=== PATIENT | male | born 1955 | race Caucasian/White ===

== ENCOUNTER 2022-07-01 11:23 | Outpatient (CLI) | payer MEDICARE, SELFPAY ==
[2022-07-01 21:24] LABS: Albumin* 4.4 g/dL (3.3-5.0); Chloride* 104 mmol/L (96-114); Sodium* 139 mmol/L (135-149)
[2022-07-01 21:25] LABS: Potassium* 4.4 mmol/L (3.6-5.1)
[2022-07-01 21:27] LABS: Alanine Aminotransferase* 44 U/L (4-50); Alkaline Phosphatase* 56 U/L (40-150); Aspartate Amino Transferase* 39 U/L (12-35); Bilirubin Total* 0.9 mg/dL (0.1-1.5); Blood Urea Nitrogen* 10 mg/dL (7-30); Carbon Dioxide* 27 mmol/L (20-32); Cholesterol* 163 mg/dL (90-199); Creatinine* 0.7 mg/dL (0.5-1.5); Estimated Glomerular Filt Rate 100 ml/min; Glucose* 94 mg/dL (60-115); Total Protein* 7.4 g/dL (6.0-8.3)
[2022-07-01 21:28] LABS: Calcium* 9.1 mg/dL (8.4-10.6); HDL Cholesterol* 52 mg/dL (>=40); LDL Cholesterol Calculated 80 mg/dL (<100); Triglycerides* 155 mg/dL (40-149)
[2022-07-01 21:59] LABS: PSA Screen* 2.75 ng/mL (0.10-4.00)
[2022-07-01 22:18] LABS: Vitamin B12* 328 pg/mL (243-894)
[2022-07-01 22:35] LABS: Free T4 Free Thyroxine* 1.05 ng/dL (0.70-1.85)
== END 2022-07-01 11:24 | disposition home or self-care (01) ==
PROVIDERS: PCP Physician Assistant Medical; Visit Provider Physician Assistant Medical
DX: Z00.00 Encounter for general adult medical examination without abnormal findings (principal); E78.5 Hyperlipidemia, unspecified; R73.09 Other abnormal glucose; R53.83 Other fatigue; G25.0 Essential tremor; F32.A Depression, unspecified; Z12.5 Encounter for screening for malignant neoplasm of prostate
CPT/HCPCS: 80053; 80061; 82607; 84153; 84439; 84443

== ENCOUNTER 2022-07-31 09:08 | Outpatient (CLI) | payer MEDICARE, SELFPAY | END 2022-07-31 09:09 | disposition home or self-care (01) | LOC: OP CLINIC 09:10 | PROVIDERS: PCP Physician Assistant Medical; Visit Provider Internal Medicine | DX: Z12.11 Encounter for screening for malignant neoplasm of colon (principal); K63.5 Polyp of colon; K57.30 Diverticulosis of large intestine without perforation or abscess without bleeding; Z80.0 Family history of malignant neoplasm of digestive organs | CPT/HCPCS: 45380; 45385; 88305; J2250; J3010 ==

== ENCOUNTER 2023-02-02 08:27 | Outpatient (CLI) | payer MEDICARE, SELFPAY | END 2023-02-02 08:28 | disposition home or self-care (01) | LOC: NFLDREF 02-04 12:44 | PROVIDERS: PCP Physician Assistant Medical; Referring Provider Physician Assistant Medical; Visit Provider Physician Assistant Medical | DX: R79.89 Other specified abnormal findings of blood chemistry (principal) | CPT/HCPCS: 84439; 84443 ==

== ENCOUNTER 2023-06-02 03:07 | Emergency (ER) | payer MEDICARE, SELFPAY ==
[2023-06-02 03:11] VITALS: BP 133/94; PULSE 72; RESP 20; TEMP 36.4; O2SAT 96; BMI 35.9
[2023-06-02 03:26] VITALS: O2SAT 98
--- NOTE | 2023-06-02 03:26 | CRLHL7_ITS ---
For Patients: As a result of the Century Cures Act, medical imaging exams and procedure reports are released immediately into your electronic medical record. You may view this report before your referring provider. If you have questions, please contact your health care provider. INDICATION: Dyspnea, cough. TECHNIQUE: Chest 2 views. COMPARISON: 03/31/2019. FINDINGS: Cardiovascular and mediastinum: Heart size and vasculature are normal in caliber and appearance. Lungs and pleural spaces: Lungs are clear. No sign of infiltrate or mass. No sign of pleural effusion. No pneumothorax. Bones and soft tissues: No significant findings. IMPRESSION: No acute pulmonary process. Dictated by Walter Sexton MD @ 06/02/2023 3:46:40 AM (Electronically Signed)
--- NOTE | 2023-06-02 03:29 | ED_ITS ---
HPI - General Adult General Chief complaint: Shortness of Breath/Dyspnea Stated complaint: Can't breathe /Chest pain. Time Seen by Provider: 06/02/23 03:12 Source: patient Mode of arrival: ambulatory History of Present Illness HPI narrative: 67-year-old male reports a 7 day history of initial sore throat then progression the chest congestion. Was initially improving for a couple of days and now worsening over the last 24 hours. Cough is nonproductive. Feels like he is wheezing. No prior history of COPD, lifetime nonsmoker. No known illness exposures. Has been using home COVID tests which have been negative. Was evaluated through virtual visit as he was unable to get in to his primary provider a few days ago and was diagnosed with an upper respiratory infection with symptomatic care recommended. Since that time, he feels like his symptoms are worsening. He tried taking some Mucinex and Sudafed this evening with no significant improvement in symptoms. Feels like it is difficult to get air in and has chest congestion. He has no prior cardiac history. There is no associated lightheadedness, palpitations, syncope or other similar cardiac problems. Denies prior history of pneumonias, no pertinent travel. Appetite has been normal, no vomiting. Past medical history notable for anxiety, tremor, hyperlipidemia. Medications reviewed and accurate as listed in EMR per his report. Socially is a nonsmoker with no pertinent travel. ROS is notable for the respiratory, generalized and HEENT symptoms as described above, otherwise denies times 12 systems. Related Data Home Medications Medication Instructions Recorded Confirmed meclizine 25 mg tablet 25 mg PO PRN 07/01/22 07/29/22 citalopram 20 mg tablet 30 mg PO DAILY 06/02/23 06/02/23 Previous Rx's Medication Instructions Recorded propranolol 60 mg capsule,24 60 mg PO QDAY #90 caps 07/29/22 hr,extended release simvastatin 20 mg tablet 20 mg PO .Bedtime #90 tabs 11/19/22 primidone 50 mg tablet 100 mg (2 x 50 mg) PO BID #360 tabs 11/25/22 citalopram 40 mg tablet 40 mg PO QDAY #90 tabs 01/11/23 peg 3350-electrolytes 236 240 ml PO Q10M #4,000 mL 05/26/23 gram-22.74 gram-6.74 gram-5.86 gram solution (Golytely) albuterol sulfate 90 mcg/actuation 2 inh inhalation Q4-6H PRN #1 ea 06/02/23 breath activated powder inhaler azithromycin 250 mg tablet See Rx Instructions PO .COMPLEX #6 06/02/23 tabs inhalational spacing device #1 ea 06/02/23 (Aerochamber MV spacer) prednisone 20 mg tablet 20 mg PO DAILY #5 tabs 06/02/23 Allergies Allergy/AdvReac Type Severity Reaction Status Date / Time codeine AdvReac Severe headache, Verified 06/02/23 03:11 vomitting PFSH PFSH Medical History Colon polyps ?K63.5 - Polyp of colon (ICD-10) Surgical History History of partial knee replacement ?Z96.659 - Presence of unspecified artificial knee joint (ICD-10) History of appendectomy ?Z90.49 - Acquired absence of other specified parts of digestive tract (ICD- 10) History of right inguinal hernia repair (06/13/09) ?Z98.890 - Other specified postprocedural states (ICD-10) ?Z87.19 - Personal history of other diseases of the digestive system (ICD-10) History of cholecystectomy (06/13/09) ?Z90.49 - Acquired absence of other specified parts of digestive tract (ICD- 10) Family History Father Heart disease Mother Colon cancer Social History Narrative: The patient is . He has 2 adult children. He has a 3 daughter that lives out of state and a son that suffers from alcoholism and lives in his basement. 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 He does not smoke. Reports occasional alcohol use. Smoking Status: Never smoker Non-prescribed substance use: denies use Little interest or pleasure in doing things: more than half the days Feeling down, depressed, or hopeless: nearly every day Exam Const: Vital Signs, click to edit/add: Vital Signs - 24 hr 06/02/23 03:11 Temperature 97.6 F Pulse Rate [Pulse Oximeter] 72 Respiratory Rate 20 Blood Pressure [Ri ght Upper Arm] 133/94 H Pulse Oximetry 96 Oxygen Delivery Me thod Room Air Documenting provider has reviewed patient's vital signs: yes Other: Mildly anxious with no visible respiratory distress though he does report that he feels respiratory distress. Well nourished, well hydrated, good historian. HENMT: Common normals: normocephalic and TM's normal bilaterally Head and scalp: normocephalic Tympanic membrane: TM's normal bilaterally Mouth: oral and palatal mucosa normal Throat: posterior oropharynx normal Eye: Common normals: conjunctivae normal General eye: normal appearance of both eyes Conjunctiva: conjunctiva(e) normal Neck & C-Spine: Common normals: full ROM and no lymphadenopathy Resp: Common normals: normal respiratory effort and no use of accessory muscles Other: Decreased air movement throughout with mild expiratory wheeze. No crackles. Cardio: Common normals: regular rate, regular rhythm, S1 normal heart sound, S2 normal heart sound and no murmurs Rate: regular rate Rhythm: regular rhythm Heart sounds: S1 normal and S2 normal Extremity: Common normals: normal to inspection and no pedal edema Neuro: Speech: speech normal Motor exam: no movement abnormalities noted Psych: Activity/motor behavior: appropriate eye contact Mood and affect: anxious Insight: fair Judgement: fair Skin: Common normals: no rashes or lesions noted General skin exam: no rashes or lesions noted Course Course ED Course: Reassuring initial vital signs. Is on a beta-cody which could potentially mass tachycardia but there is no tachypnea or other signs of respiratory distress. Does have risk factors for coronary artery disease based on age and hyperlipidemia but symptoms are more likely respiratory in nature. Will obtain an EKG, troponin, chest x-ray to look for any signs of pneumonia. Basic labs to assess severity and COVID/influenza/RSV swab. I suspect that he has bronchitis and possibly some mild underlying COPD, does report a history of sleep apnea in his records. Will treat with DuoNeb x1, begin 20 mg of prednisone and 500 mg of azithromycin while we await findings. Reevaluation(s) Time of Reevaluation #1: 04:54 Reevaluation #1: Patient feeling moderately better after inhaler and medications. Normal chest x-ray, relatively normal labs and positive RSV swab discussed. Discussed typical course of RSV. His he is having some symptoms and signs consistent with reactive airway disease, I recommend treatment with prednisone, azithromycin and of uteri all inhaler. These were discussed and sent to his pharmacy. Alarm symptoms reviewed that would warrant 80 presentation and or further follow-up. He verbalizes understanding and agreement. Has not demonstrated any hypoxia or significant respiratory distress on monitoring here in the ED. Vital Signs Vital signs: Initial Vital Signs Temperature 97.6 F 06/02/23 03:11 Temperature Source Temporal Artery Scan 06/02/23 03:11 Pulse Rate 72 06/02/23 03:11 Pulse Strength 3+ Normal 06/02/23 03:11 Respiratory Rate 20 06/02/23 03:11 Blood Pressure 133/94 H 06/02/23 03:11 Blood Pressure Mean 107 H 06/02/23 03:11 Pulse Oximetry 96 06/02/23 03:11 Oxygen Delivery Method Room Air 06/02/23 03:11 Vital Signs Temperature 97.6 F 06/02/23 03:11 Pulse Rate 72 06/02/23 03:11 Respiratory Rate 20 06/02/23 03:11 Blood Pressure 133/94 H 06/02/23 03:11 Pulse Oximetry 96 06/02/23 03:11 Oxygen Delivery Method Room Air 06/02/23 03:11 Temperature 97.6 F 06/02/23 03:11 Pulse Rate 72 06/02/23 03:11 Respiratory Rate 20 06/02/23 03:11 Blood Pressure 133/94 H 06/02/23 03:11 Pulse Oximetry 96 06/02/23 03:11 Oxygen Delivery Method Room Air 06/02/23 03:11 Medications Administered Medications: Discontinued Medications Generic Name Dose Route Start Last Admin Trade Name Freq PRN Reason Stop Dose Admin Albuterol/Ipratropium 1 neb 06/02/23 03:26 06/02/23 03:44 Iprat-Albut 0.5-2.5 Mg/3 Ml Neb IH 06/02/23 03:27 1 neb ONCE ONE Administration Azithromycin 500 mg 06/02/23 03:32 06/02/23 03:45 Azithromycin 250 Mg Tablet PO 06/02/23 03:33 500 mg ONCE ONE Administration Prednisone 20 mg 06/02/23 03:32 06/02/23 03:45 Prednisone 10 Mg Tablet PO 06/02/23 03:33 20 mg ONCE ONE Administration Medical Decision Making Lab Data Lab results reviewed: Yes I reviewed the patient's lab results Labs: Lab Results 06/02/23 06/02/23 Range/Units 03:17 03:50 WBC 7.13 (4.50-11.00) K/uL RBC 4.87 (4.30-5.90) m/uL Hgb 15.1 (13.5-17.5) gm/dL Hct 44.7 (37.0-53.0) % MCV 92 (80-100) fL MCH 31 (26-34) pg MCHC 34 (32-36) gm/dL RDW Coeff of Bhavani 11.6 (11.5-15.5) % Plt Count 172 (140-440) K/uL Neut % (Auto) 67.9 (42.0-72.0) % Lymph % (Auto) 18.4 L (20-44) % [place] % (Auto) 9.1 (0.0-11.0) % Eos % (Auto) 3.4 (0.0-7.0) % Baso % (Auto) 0.4 (0.0-3.0) % Neut # (Auto) 4.84 (1.7-7.0) K/uL Lymph # (Auto) 1.30 (0.90-2.90) K/uL [place] # (Auto) 0.60 (0.00-0.90) K/UL Eos # (Auto) 0.24 (0.00-0.50) K/uL Baso # (Auto) 0.03 (0.00-0.30) K/uL Abs Immat Gran (auto) 0.06 (0.00-0.30) K/uL Imm/Tot Granulo (auto) 0.8 % Sodium 136 (135-149) mmol/L Potassium 4.2 (3.6-5.1) mmol/L Chloride 100 (96-114) mmol/L Carbon Dioxide 26 (20-32) mmol/L Anion Gap 10 (7-15) mEq/L BUN 7 (7-30) mg/dL Creatinine 0.8 (0.5-1.5) mg/dL Estimated Creat Clear 71.99 Estimated GFR 96 ml/min Glucose 117 H (60-115) mg/dL Lactate 2.4 H (0.5-1.9) mmol/L Calcium 9.2 (8.4-10.6) mg/dL C-Reactive Protein 0.9 (0.5-1.0) mg/dL NT-Pro-B Natriuret Pep 189 pg/mL SARS-CoV-2 (PCR) Negative SARS-CoV-2 (Negative) Influenza Type A (PCR) Negative PCR FLU A (Negative) Influenza Type B (PCR) Negative PCR FLU B (Negative) RSV (PCR) POSITIVE PCR RSV A (Negative) POC Troponin I 0.00 L (0.01-0.04) ng/ml Imaging Data Chest x-ray: Attestation: I have reviewed the pertinent imaging results. My impression: Normal chest x-ray Radiologist's impression: IMPRESSION: No acute pulmonary process. Dictated by Walter Sexton MD @ 06/02/2023 3:46:40 AM ECG Data Attestation: I personally reviewed and interpreted this ECG as follows: Prior ECG tracings: not available for review Interpretation: Normal sinus rhythm, rate 70. Normal intervals and axis. No significant ST or T-wave abnormalities. Normal EKG Discharge Plan Discharge Clinical Impression: Mild reactive airways disease, Respiratory syncytial virus (RSV) Patient Disposition: Home, Self-Care Condition: Improved Instructions: RSV (Respiratory Syncytial Virus) (ED) Additional Instructions: As we discussed, you swabs are positive for RSV. This is a common respiratory illness this time of year. Unfortunately it does last a few weeks. This is different than most typical viruses. There is no specific treatment for this. But because you are having some wheezing associated with it now, I would recommend a short course of azithromycin and prednisone. You have already been given today's dose. I will send an additional 5 days supply to your pharmacy. Your next dose of both of these medications will be in the morning of the . I am also sending an inhaler with a spacer. The inhaler you will use for cough fits. I certainly want you to take it 2 puffs before bedtime, as the cough is often worse overnight. You may use the inhaler up to every 2 hours as needed for coughing fits. There is a bit of a learning curve with the inhalers, please use the spacer provided and watched an instructional video readily available from the manufacture or on YouTube of how to use these properly. There are no signs of low oxygen levels, pneumonia or other abnormalities in your blood work. If her symptoms worsen severely, please come back to the [facility] department. Activity Level: Activity as Tolerated Discharge Diet: Regular Prescriptions: New prednisone 20 mg tablet 20 mg PO DAILY Qty: 5 0RF azithromycin 250 mg tablet See Rx Instructions .ROUTE .COMPLEX Qty: 6 0RF Rx Instructions: For 250 mg dose pack: take 500 mg today (day 1), then 250 mg for 4 days (days 2-5) albuterol sulfate 90 mcg/actuation aerosol powdr breath activated 2 inh inhalation Q4-6H PRNQty: 1 1RF (DME) Aerochamber MV Spacer See Rx Instructions .Route Qty: 1 0RF Rx Instructions: As directed No Action meclizine 25 mg tablet 25 mg PO PRN Rx Instructions: for nausea and vertigo citalopram 20 mg tablet 30 mg PO DAILY propranolol 60 mg capsule,extended release 24 hr 60 mg PO QDAY Qty: 90 3RF Rx Instructions: once daily for tremor simvastatin 20 mg tablet 20 mg PO .Bedtime Qty: 90 3RF primidone 50 mg tablet 100 mg PO BID Qty: 360 3RF Rx Instructions: Take 2 tablets twice daily for tremor citalopram 40 mg tablet 40 mg PO QDAY Qty: 90 0RF peg 3350-electrolytes [Golytely] 236-22.74-6.74 -5.86 gram recon soln 240 ml PO Q10M Qty: 4000 0RF Rx Instructions: until fecal effluent is clear Follow Up/Referrals: Naomi Chowdhury PA-C [Primary Care Provider] - Stand Alone Forms: [employer] Info Instructions
[2023-06-02] MEDS: IPRAT-ALBUT 0.5-2.5 MG/3 ML NEB 1 NEB IH (03:44)
[2023-06-02] MEDS: predniSONE 10 MG TABLET 20 MG PO (03:45)
[2023-06-02] MEDS: AZITHROMYCIN 250 MG TABLET 500 MG PO (03:45)
[2023-06-02 03:59] LABS: PCR FLU A Negative PCR FLU A (Negative); PCR FLU B Negative PCR FLU B (Negative); PCR RSV POSITIVE PCR RSV (Negative)
[2023-06-02 04:04] LABS: Lactate* 2.4 mmol/L (0.5-1.9)
[2023-06-02 04:05] LABS: Basophils Absolute Auto 0.03 K/uL (0.00-0.30); Basophils Percent Auto 0.4 % (0.0-3.0); Eosinophils Absolute Auto 0.24 K/uL (0.00-0.50); Eosinophils Percent Auto 3.4 % (0.0-7.0); Hematocrit 44.7 % (37.0-53.0); Hemoglobin* 15.1 gm/dL (13.5-17.5); Immature Granulocytes Abs Auto 0.06 K/uL (0.00-0.30); Immature Granulocytes Pct Auto 0.8 %; Lymphocytes Percent Auto 18.4 % (20-44); Mean Corpuscular HGB Conc 34 gm/dL (32-36); Mean Corpuscular Hemoglobin 31 pg (26-34); Mean Corpuscular Volume 92 fL (80-100); Monocytes Percent Auto 9.1 % (0.0-11.0); Neutrophils Absolute Auto 4.84 K/uL (1.7-7.0); Neutrophils Percent Auto 67.9 % (42.0-72.0); Platelet Count* 172 K/uL (140-440); RDW Coefficient of Variation % 11.6 % (11.5-15.5); Red Blood Count 4.87 m/uL (4.30-5.90); White Blood Count* 7.13 K/uL (4.50-11.00)
[2023-06-02 04:21] LABS: Slide Review Reflex No
[2023-06-02 04:25] LABS: SARS PCR* Negative SARS-CoV-2 (Negative)
[2023-06-02 04:29] LABS: Chloride* 100 mmol/L (96-114); Potassium* 4.2 mmol/L (3.6-5.1); Sodium* 136 mmol/L (135-149)
[2023-06-02 04:31] LABS: Creatinine* 0.8 mg/dL (0.5-1.5); Est. Creatinine Clearance* 71.99; Estimated Glomerular Filt Rate 96 ml/min
[2023-06-02 04:32] LABS: Anion Gap 10 mEq/L (7-15); Carbon Dioxide* 26 mmol/L (20-32)
[2023-06-02 04:33] LABS: Blood Urea Nitrogen* 7 mg/dL (7-30); Calcium* 9.2 mg/dL (8.4-10.6); Glucose* 117 mg/dL (60-115)
[2023-06-02 04:35] LABS: C Reactive Protein* 0.9 mg/dL (0.5-1.0)
[2023-06-02 04:48] LABS: NT Pro B Type NatriureticPept* 189 pg/mL
[2023-06-02 05:05] VITALS: BP 128/86
== END 2023-06-02 05:06 | disposition home or self-care (01) ==
PROVIDERS: Emergency Provider Family Medicine; PCP Physician Assistant Medical
DX: J45.909 Unspecified asthma, uncomplicated (principal); B97.4 Respiratory syncytial virus as the cause of diseases classified elsewhere; R06.89 Other abnormalities of breathing
CPT/HCPCS: 36415; 71046; 80048; 83605; 83880; 84484; 85025; 86140; 87631; 93005; 94640; 94761; 99284; A9270; J7512

== ENCOUNTER 2023-09-22 09:14 | Outpatient (CLI) | payer MEDICARE, SELFPAY | END 2023-09-22 09:15 | disposition home or self-care (01) | PROVIDERS: PCP Physician Assistant Medical; Visit Provider Internal Medicine | DX: R53.83 Other fatigue (principal); Z13.228 Encounter for screening for other metabolic disorders; Z13.29 Encounter for screening for other suspected endocrine disorder | CPT/HCPCS: 80053; 84443 ==

== ENCOUNTER 2023-09-28 14:33 | Outpatient (CLI) | payer MEDICARE, BC, SELFPAY ==
--- NOTE | 2023-09-28 15:33 | P.STN_ITS ---
Stress Test Note Date Date Seen: 09/28/23 Date of test: 09/28/23 Providers Primary care provider: Naomi Chowdhury Stress test physician: Lissette Gonzales Stress Test Note Stress test ordered: Stress Echo Indication for test: Fatigue Stress test medicine: None Results discussion: Resting EKG: Sinus rhythm, 75 beats per minute. Artifact noted, low voltage QRS. Resting blood pressure: 129/87 Stress test: Patient is consented on stress test ordered. Patient is exercised on the treadmill following standard Mani protocol. There is notably significant artifact during stress testing, adjustments were attempted to be made to the patches and monitor to no avail. Patient was able to exercised to 6 minutes 35 seconds, requesting to stop mostly because his knees were significantly symptomatic. This is equivalent to 7.9 Mets. He had a maximum heart rate of 152 beats per minute which was 118% of a calculated target heart rate of 128. Patient is rate pressure product was 22,610 with the maximal blood pressure near the end of exercise of 190/94. No significant ischemic changes noted, no rhythm a. Patient recovered nicely. Await echo images to couple this for a full formal diagnostic. Impression: Subjectively negative, objectively negative EKG portion of this stress test. Follow up suggested: Await echo images to couple this for a full formal diagnostic. Patient disch arged from his stress test in stable condition.
[2023-09-28 16:03] VITALS: BP 121/65; PULSE 77
== END 2023-09-28 14:34 | disposition home or self-care (01) ==
LOC: STRESS 14:34
PROVIDERS: PCP Physician Assistant Medical; Visit Provider Family Medicine
DX: R53.83 Other fatigue (principal)
CPT/HCPCS: 93016; 93325; 93351

== ENCOUNTER 2023-10-01 12:33 | Outpatient (CLI) | payer MEDICARE, BC, SELFPAY ==
--- NOTE | 2023-10-01 13:12 | P.ANES_ITS ---
Anesthesia Charges Start Date/Time Anesthesia Start Date: 10/01/23 Anesthesia Start Time: 13:17 Stop Date/Time Anesthesia Stop Date: 10/01/23 Anesthesia Stop Time: 13:40 Summary Extremes of Age - Over 70 or under 1: [employer] DIRECTOR
--- NOTE | 2023-10-01 13:31 | W.ANESCHARGE ---
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
== END 2023-10-01 12:34 | disposition home or self-care (01) ==
LOC: OP CLINIC 12:37
PROVIDERS: PCP Physician Assistant Medical; Visit Provider Internal Medicine
DX: K63.5 Polyp of colon (principal); K57.30 Diverticulosis of large intestine without perforation or abscess without bleeding; Z86.010 Personal history of colon polyps; Z80.0 Family history of malignant neoplasm of digestive organs
CPT/HCPCS: 00811; 45380; 88305; 99100; J2704

== ENCOUNTER 2024-08-21 13:41 | Emergency (ER) | payer MEDICARE, BC, SELFPAY ==
--- OUTSIDE RECORDS SUMMARY | 2024-08-21 13:44 | XMS_ITS | Clinical Summary ---
Author Organization [facility] Address [address] [place] [address] Care Team Providers Care Sexual Assault Nurse Name Role Phone Naomi Chowdhury PA-C Primary Care Provider Allergies Active Allergy Reactions Criticality Noted Date Comments Codeine Nausea and Vomiting 03/15/2017 headache Medications fluticasone (FLONASE) 50 MCG/ACT nasal spray [place] 1 spray into both nostrils daily as needed for rhinitis or allergies Active simvastatin (ZOCOR) 20 MG tablet Take 20 mg by mouth At Bedtime Active primidone (MYSOLINE) 50 MG tablet Take 100 mg by mouth 2 times daily 2 Active omeprazole (PRILOSEC) [address] capsule Take 20 mg by mouth daily 2 Active propranolol ER (INDERAL LA) 60 MG 24 hr capsule Take 60 mg by mouth daily Active aspirin (ASA) 325 MG EC tabletIndication s:Status post revision of total knee replacement, unspecified laterality Take 1 tablet (325 mg) by mouth daily 30 tablet 2 Active senna-docusate (SENOKOT-S/PERIC OLACE) 8.6-50 MG tabletIndication s:Status post revision of total knee replacement, unspecified laterality Take 1-2 tablets by mouth 2 times daily Take while on oral narcotics to prevent or treat constipation. 30 tablet 2 Active acetaminophen (TYLENOL) 325 MG tabletIndication s:Status post revision of total knee replacement, unspecified laterality Take 2 tablets (650 mg) by mouth every 4 hours as needed for other (mild pain) 100 tablet 2 Active ibuprofen (ADVIL/MOTRIN) 600 MG tabletIndication s:Status post revision of total knee replacement, unspecified laterality Take 1 tablet (600 mg) by mouth every 6 hours as needed (mild) 30 tablet 2 Active oxyCODONE (ROXICODONE) 5 MG tabletIndication s:Status post revision of total knee replacement, unspecified laterality Take 1 tablet (5 mg) by mouth every 6 hours as needed for moderate to severe pain (may take every 4 hours if severe) 1 tab po q 4-6 hrs prn pain 3-6 on pain scale 2 tabs po q 4-6hrs prn pain 7-10 on pain scale 50 tablet 2 Active Active Problems Problem Noted Date Diagnosed Date History of revision of total knee arthroplasty 0 07/21/2021 Status post revision of tota l knee replacement, unspecified laterality 07/21/2021 Pain due to knee joint prosthesis 07/21/2021 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 Father Heart Disease Father Heart attack Cancer Mother colon cancer Prostate Cancer No family hx of Relation Status Comments Brother 1 Alive Brother 2 Alive Father (Age 60) heart attack Mother (Age 58) colon cancer Sister Alive Social History Tobacco Use Types Packs/Day Years Used Date Smoking Tobacco: Never Smokeless Tobacco: Never Alcohol Use Standard Drinks/Week Comments Yes 1.7 (1 standard drink = 0.6 oz p ure alcohol) less than 1 drink per week PHQ-2 Answer Date Recorded PHQ-2 Score 6 08/16/2024 Adolescent Education Answer Date Record ed Getting School Help Needed Not on file 03/13 Sex and Gender Information Value Date Recorded Sex Assigned at Male 06/29/2021 11:25 AM STEAM PIPE FITTER Legal Sex Male 2:58 AM STEAM PIPE FITTER Gender Identity Male 06/29/2021 11:25 AM STEAM PIPE FITTER Sexual Orientation Choose not to disclose 2021 11:25 AM STEAM PIPE FITTER 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 Not on file Last Filed Vital Signs Vital Sign Reading Time Taken Comments Blood Pressure 131/65 07/22/2021 7:57 AM STEAM PIPE FITTER Pulse 66 07/22/2021 7:57 AM STEAM PIPE FITTER Temperature 36.6 C (97.8 F) 07/22/2021 7:57 AM STEAM PIPE FITTER Respiratory Rate 22 07/22/2021 7:57 AM STEAM PIPE FITTER Oxygen Saturation 94% 07/22/2021 7:14 AM STEAM PIPE FITTER Inhaled Oxygen Concentration - - Weight 119.4 kg (263 lb 4.8 oz) 022 8:43 AM STEAM PIPE FITTER Height 177.8 cm (5' 10) 07/21/2021 8:43 AM STEAM PIPE FITTER Body Mass Index 37.78 07/21/2021 8:43 AM STEAM PIPE FITTER Plan of Treatment Upcoming Encounters Date Type Department Care Team (Late st Contact Info) Description 09/19/2024 10:15 AM CDT Office Visit [facility] [address] [place] [phone] Mark Mandel MD [address] [place] [address] Health Maintenance Due Date Last Done Comments ADVANCE CARE PLANNING 1955 ANNUAL REVIEW OF HM ORDERS 1953 CT COLONOGRAPHY 1953 FIT 1953 FLEX SIG 1953 sDNA (Cologuard) 1955 COLONOSCOPY 1963 COLORECTAL CANCER SCREENING 1963 HEPATITIS C SCREENING 1971 LIPID 05/19/2005 05/19/2004 FALL RISK ASSESSMENT 2018 MEDICARE ANNUAL WELLNESS VISIT 2018 05/14/2004 GLUCOSE 07/22/2024 07/22/2021, 06/08, 03/20/2007, Additional history exists COVID-19 Vaccine ( season) 2024 02/25/2024, 04/09/2023, 10/23/2022, Additional history exists RSV VACCINE (1 - 1-dose 75+ series) 2028 DTAP/TDAP/TD IMMUNIZATION (3 - Td or Tdap) 06/17/2030 06/17/2020, 06/13/2009, 04/30/1998 ZOSTER IMMUNIZATION Completed 06/27/2021, 03/24/2021, 03/21/2015 Pneumococcal Vaccine: 50+ Years Completed 07/01/2022, 06/17/2020 INFLUENZA VACCINE Completed 02/25/2024, , 02/23/2022, Additional history exists PHQ-2 (once per calendar year) Completed 08/16/2024, 08/16/2024 HPV IMMUNIZATION Aged Out No longer e ligible based on patient's age to complete this topic MENINGITIS IMMUNIZATION Aged Out No l onger eligible based on patient's age to complete this topic Medical Devices Implanted Type Area Rn Home Care Device Identifier Shelf Expiration Date Model / Serial / Lot Bone Cement Simplex W/Tobramycin 6197-9-001 - [id number] Implanted:Qt y: 1 on 07/21/2021 by Reynaldo Granger MD at [facility] Cement, Bone Right: Knee [employer] [id number] 12/04/2022 6197-9-001 / / [id number] Right, 16mm, Ps, Fixed Bearing, Persona Vivacit-E Articular Surface Implanted:Qt y: 1 on 07/21/2021 by Reynaldo Granger MD at [facility] Right: Knee [id number] 12/04/2021 [id number] / / [id number] Persona Size 9, Right, Standard, Ps Femur Implanted:Qt y: 1 on 07/21/2021 by Reynaldo Granger MD at [facility] Right: Knee [id number] 07/16/2030 [id number] / / [id number] Persona Natural Tibia , 5 , Stemmed, Right Implanted:Qt y: 1 on 07/21/2021 by Reynaldo Granger MD at [facility] Right: Knee [id number] 12/29/2030 [id number] / / [id number] Explanted Type Area Rn Home Care Device Identifier Shelf Expiration Date Model / Serial / Lot Unicompartmental Knee Arthroplasty Component Explanted:Qty: 1 on 07/21/2021 by Reynaldo Granger MD at [facility] Right: Knee Procedures Procedure Name Priority Date/Time Associated Diagnosis Comments GLUCOSE Routine 07/22/2021 5:54 AM STEAM PIPE FITTER HCL LIPID PANEL Routine 05/19/2004 2:44 PM STEAM PIPE FITTER Screening-Lipoid Disorders from Last 3 Months or Most Recently Relevant to Health Maintenance Results * (ABNORMAL) Glucose (07/22/2021 5:54 AM STEAM PIPE FITTER) Pathologist [facility] Glucose 111(H) 70 - 99 mg/dL 07/22/2021 6:45 AM STEAM PIPE FITTER LABORATORY Blood STRUCTURE OF RIGHT HAND / Unknown Venipuncture / Unknown 07/22/2021 5:54 AM STEAM PIPE FITTER 07/22/2021 6:25 AM STEAM PIPE FITTER us Reynaldo Granger MD LAB - BLOOD ORDERABLES F inal Result LABORATORY [facility] [address] Lab (1st floor, no room number) [place] [address], [facility] [phone] * (ABNORMAL) A.M.A. LIPID PANEL (05/19/2004 2:44 PM STEAM PIPE FITTER) Comments DNR [facility] Triglycerides 361(H) <150 MG/DL [facility] Cholesterol 229(H) <200 MG/DL [facility] Cholesterol Percentile 60 PERCENTILE [facility] HDL Cholesterol 36(L) >39 MG/DL [facility] LDL Cholesterol Calculated 121 <130 MG/DL [facility] Comment: LDL CHOLESTEROL (MG/DL) GOALS AND CUTPOINTS FOR THERAPEUTIC LIFESTYLE CHANGES (TLC) AND DRUG THERAPY IN DIFFERENT RISK CATEGORIES (AFTER EXCLUSION OR, IF APPROPRIATE, TREATMENT OF SECONDARY CAUSES OF LDL ELEVATION). FROM NCEP ATP-III REPORT, OCTOBER 2000. RISK CATEGORY LDL GOAL LDL TO LDL TO CONSIDER INITIATE TLC DRUG THERAPY - CHD OR CHD >129 EQUIVALENTS: (100-129: 10 YR RISK >20% <100 >99 DRUG OPTIONAL) 2+ RISK FACTORS: 10 YR RISK 10-20% <130 >129 >129 - 2+ RISK FACTORS: 10 YR RISK <10% <130 >129 >159 - 0-1 RISK FACTORS: <160 >159 >189 (160-189: DRUG OPTIONAL) Cholesterol/HDL Ratio 6.4(H) <5.0 [facility] 05/19/2004 2:44 PM STEAM PIPE FITTER 05/19/2004 us Bj Smiley MD LABORATORY Final Resu lt [facility] from Last 3 Months or Most Recently Relevant to Health Maintenance [place] [address] [facility] MEDICARE SUPPLEMENT Advance Directives For more information, please contact: [phone] * Full Code (Latest Code Status on File) Date Activated Date Inactivated Comments 07/21/2021 2:23 PM 07/22/2021 12:58 PM All basic a nd advanced life-sustaining interventions are performed as appropriate Question Answer Comments Code status determined by: Unable to dis cuss and no AD/POLST on file; continue PREVIOUSLY ORDERED code status Care Teams Sexual Assault Nurse Relationship Specialty Start Date End Date Naomi Chowdhury PA-C [facility] [address] [place] [address] PCP - General Physician Permit Coordinator 07/15/21
--- OUTSIDE RECORDS SUMMARY | 2024-08-21 13:44 | XMS_ITS | Encounter Summary ---
Author Organization [facility] Address [address] [place] [address] Care Team Providers Care Glue Machine Operator Name Role Phone Lissette Diaz MD Primary Care Provider [phone] Naomi Chowdhury PA-C Primary Care Provider Encounter Details Date Type Department Care Team (Late st Contact Info) Description 06/27/2021 Documentation Only INTERFACED REPORT Unknown, Provider Social History Tobacco Use Types Packs/Day Years Used Date Smoking Tobacco: Never Smokeless Tobacco: Never Alcohol Use Standard Drinks/Week Comments Yes 1.7 (1 standard drink = 0.6 oz p ure alcohol) occ Sex and Gender Information Value Date Recorded Sex Assigned at Male 06/29/2021 11:25 AM ASSISTANT MANAGER/EMBALMER Legal Sex Male 2:58 AM ASSISTANT MANAGER/EMBALMER Gender Identity Male 06/29/2021 11:25 AM ASSISTANT MANAGER/EMBALMER Sexual Orientation Choose not to disclose 2021 11:25 AM ASSISTANT MANAGER/EMBALMER 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 Not on file documented as of this encounter Plan of Treatment Upcoming Encounters Date Type Department Care Team (Late st Contact Info) Description 09/19/2024 10:15 AM CDT Office Visit [facility] [address] [place] [address] Mark Mandel MD [address] [place] [address] documented as of this encounter Visit Diagnoses Not on filedocumented in this encounter Care Teams Glue Machine Operator Relationship Specialty Start Date End Date Lissette Diaz MD [facility] [address], [place] [address] PCP - General 02/22/17 07/14/21 Naomi Chowdhury PA-C [facility] [address] [place] [address] PCP - General Physician Concrete Pipe Machine Operator 07/15/21 documented as of this encounter
--- OUTSIDE RECORDS SUMMARY | 2024-08-21 13:44 | XMS_ITS | Clinical Summary ---
Author Organization [facility] Address [address] [place] [address] Care Team Providers Care Collar Turner Operator Name Role Phone Naomi Chowdhury PA-C Primary Care Provider [phone] Allergies Active Allergy Reactions Criticality Noted Date Comments Codeine Nausea And Vomiting 03/15/2017 headache Medications aspirin chewable 81 mg chewable tablet Take 81 mg by mouth once daily with a meal. Active primidone (MYSOLINE) 50 mg tablet Take 50 mg by mouth 3 times daily. Active simvastatin (ZOCOR) 20 mg tablet Take 20 mg by mouth at bedtime. Active propranolol ER (INDERAL LA) 60 mg Cs24 Sustained-Releas e capsule Take 60 mg by mouth once daily. Active Active Problems Problem Noted Date Diagnosed Date Other chest pain 04/04/2019 ASHD (arteriosclerotic heart disease) 04/04/2019 Social History Tobacco Use Types Packs/Day Years Used Date Smoking Tobacco: Never Smokeless Tobacco: Never Alcohol Use Standard Drinks/Week Comments Yes 0 (1 standard drink = 0.6 oz pur e alcohol) occ - 2 per week Sex and Gender Information Value Date Recorded Sex Assigned at Not on file Legal Sex Male 3:52 PM CDT Gender Identity Not on file Sexual Orientation Not on file Obstetrics History Last Filed Vital Signs Vital Sign Reading Time Taken Comments Blood Pressure 116/60 04/04/2019 2:30 PM CDT Pulse 57 04/04/2019 2:30 PM CDT Temperature - - Respiratory Rate - - Oxygen Saturation 97% 04/04/2019 2:30 PM CDT Inhaled Oxygen Concentration - - Weight 106.1 kg (234 lb) 04/04/2019 2:30 PM CDT Height 177.8 cm (5' 10) 04/04/2019 2:30 PM CDT Body Mass Index 33.58 04/04/2019 2:30 PM CDT Plan of Treatment Health Maintenance Due Date Last Done Comments Tdap 1964 Depression screening for age 12+ 1965 Hepatitis C screening for age 18-79 1971 Tetanus booster 1973 Colonoscopy through age 75 1998 Lipids for age 45-75 1998 Pneumococcal series for age 50+ (1 of 1 - PCV) 004 Zoster (shingles) series for age 50+ (1 of 2) 06/16/19 04 BMI (ht and wt on same day) for age 18+ 04/04/2020 1 COVID-19 vaccine series ( - 2023- season) 4 Influenza Vaccine (#1) 2024 RSV vaccine for adults or pr egnancy (1 - 1-dose 75+ series) 2028 Insurance [facility] MEDICARE PB ONLY Care Teams Collar Turner Operator Relationship Specialty Start Date End Date Naomi Chowdhury PA-C [address] [place] [address] PCP - General Emergency Medicine 04/04/19
--- OUTSIDE RECORDS SUMMARY | 2024-08-21 13:44 | XMS_ITS | Clinical Summary ---
Author Organization [facility] Address [address] [place] [address] Care Team Providers Care Boring Machine Feeder Name Role Phone Unassigned, Provider Primary Care Provider Unava ilable Source Comments You are receiving this document as you are listed as the primary care provider,follow-up provider, or the patient has been referred to you for consultation.This is in compliance with the Medicare andMedicaid EHR Incentive Program,which states Providers who transition their patient to another setting of careor provider of care or refers their patient to another provider of care shouldprovide summary care record for each transition of care or referral. [facility] Allergies No known active allergies Medications simvastatin 10 mg TABS Take 10 mg by mouth. Active Active Problems No known active problems Social History Tobacco Use Types Packs/Day Years Used Date Smoking Tobacco: Never Assessed Sex and Gender Information Value Date Recorded Sex Assigned at Not on file Legal Sex Male 5:03 AM CDT Gender Identity Not on file Sexual Orientation Not on file Plan of Treatment Health Maintenance Due Date Last Done Comments Colon Cancer Screening Plan Due 1955 Hep C Screening (Preventive Services) 1955 Adult Preventive Visit 1971 Cholesterol 1988 Zoster/Shingles (2 of 3) 05/16/2015 03/21/2015 Pneumococcal 50+ Yrs (2 of 2 - PCV) 06/17/2021 06/17/2020 COVID-19 Vaccine (3 - season) 2024 09/03/2020, 08/13/2020 Influenza (#1) 2024 03/22/2020, 05/07, 03/02/2017, Additional history exists RSV (1 - 1-dose 75+ series) 2028 DTaP/Tdap/Td (3 - Tdap) 06/17/2030 06/17/2020, 06/13 HepA Aged Out 04/30/1998 No longer eligi ble based on patient's age to complete this topic HepB Aged Out No longer eligi ble based on patient's age to complete this topic Hib Aged Out No longer eligi ble based on patient's age to complete this topic IPV (Polio) Aged Out No longer eligi ble based on patient's age to complete this topic MCV4 Aged Out No longer eligi ble based on patient's age to complete this topic Meningococcal B Aged Out No longer el igible based on patient's age to complete this topic Insurance BCBS OUT OF STATE Care Teams Boring Machine Feeder Relationship Specialty Start Date End Date Unassigned, Provider [address] [place] [address] PCP - General 05/15/00
--- OUTSIDE RECORDS SUMMARY | 2024-08-21 13:44 | XMS_ITS | Encounter Summary ---
Author Organization [facility] Address [address] [place] [address] Care Team Providers Care Rubber Grinder Name Role Phone Naomi Chowdhury PA-C Primary Care Provider Reason for Visit * Reason Comments New Patient Encounter Details Date Type Department Care Team (Late st Contact Info) Description 08/16/2024 1:00 PM CDT Virtual Visit [facility] [address] 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 YES Visit mode:VIDEO If the visit is dropped, the patient can be reconnected by: VIDEO VISIT: Text to cell phone: [phone] Will anyone else be joining the visit? NO How would you like to obtain your AVS? MyChart Are changes needed to the allergy or medication list? NO Reason for visit: New Patient documented in this encounter Plan of Treatment Upcoming Encounters Date Type Department Care Team (Late st Contact Info) Description 09/19/2024 10:15 AM CDT Office Visit [facility] [address] [facility] [address] [place] [phone] Mark Mandel MD [address] [facility] [address] [place] [address] documented as of this encounter Visit Diagnoses Not on filedocumented in this encounter Additional Health Concerns Assessment Noted Time PHQ-9 Depression Total Score: 16 025 12:47 PM CDT documented as of this encounter Care Teams Rubber Grinder Relationship Specialty Start Date End Date Naomi Chowdhury PA-C [facility] [address] [place] [address] PCP - General Physician Hammer Adjuster 07/15/21 documented as of this encounter
[2024-08-21 13:56] VITALS: BP 124/77; PULSE 61; RESP 16; TEMP 36.4; O2SAT 94; BMI 38.2
--- NOTE | 2024-08-21 14:06 | CRLHL7_ITS ---
For Patients: As a result of the Century Cures Act, medical imaging exams and procedure reports are released immediately into your electronic medical record. You may view this report before your referring provider. If you have questions, please contact your health care provider. Indication: Right testicular pain and swelling. Technique: Ultrasound of the scrotum and contents. Sonographic sah-scale images were obtained with spectral and color Doppler waveform and spectral waveform analysis of the testicles. Comparison: None. Findings: Bother testicles are normal in size and echotexture. No masses. No suspicious calcifications. Arterial and venous color Doppler blood flow and spectral waveforms are present in both testicles. Epididymis: Enlarged and hyperemic right epididymis. Other: No significant hydrocele. No sign of varicocele. Scrotal wall is normal. Impression: Acute right epididymitis. Testicles and remainder of the exam are unremarkable. Dictated by Thomas Willard MD @ 08/21/2024 3:33:08 PM (Electronically Signed)
--- NOTE | 2024-08-21 15:02 | ED.MALEGU ---
HPI - Male Genitourinary General Time Seen by Provider: 15:02 Date Seen: 08/21/24 Chief complaint: Urogenital Problems, Male Stated complaint: Possible Testicular Tortion Time Seen by Provider: 08/21/24 14:04 Source: patient and RN notes reviewed Mode of arrival: ambulatory Limitations: no limitations History of Present Illness HPI Narrative: Patient is a very pleasant 69-year-old gentleman currently sexually active with history of KEVON hyperlipidemia who comes to the emergency room complaining of right testicular pain. Read notes that over the past week he has had intermittent discomfort and 48 hours ago noticed a lump on the right testicle. Since that time he has started running a fever and has noticed more swelling of the scrotum. He has not had any vomiting or nausea. He has not had this occur in the past. He only has 1 partner. Related Data Home Medications ?Medication ?Instructions ?Recorded ?Confirmed primidone 50 mg tablet 100 mg PO BID 08/21/24 08/21/24 Previous Rx's ?Medication ?Instructions ?Recorded albuterol sulfate 90 mcg/actuation 2 inh inhalation Q4-6H PRN #1 ea 06/02/23 breath activated powder inhaler inhalational spacing device #1 ea 06/02/23 (Aerochamber MV spacer) scopolamine base 1 mg over 3 days 1 patch transdermal Q3D PRN motion 07/12/23 transdermal patch sickness #24 ea meclizine 25 mg tablet 25 mg PO TID PRN motion sickness 07/21/23 #30 tabs simvastatin 20 mg tablet 20 mg PO .Bedtime #90 tabs 10/20/23 propranolol 120 mg capsule,24 120 mg PO QDAY #30 caps 05/17/24 hr,extended release levofloxacin 500 mg tablet 500 mg PO DAILY #9 tabs 08/21/24 Allergies Allergy/AdvReac Type Severity Reaction Status Date / Time codeine AdvReac Severe headache, Verified 08/21/24 13:54 vomitting Review of Systems Status of ROS: Reports: 10 or more systems reviewed and unremarkable except as noted in History and below Const: Reports: fever; Denies: change in weight or fatigue Eyes: Denies: change in vision ENMT: Denies: throat pain or neck pain Cardio: Denies: chest pain, swelling of feet/ankles, lightheadedness or shortness of breath with exertion Resp: Denies: shortness of breath or cough GI: Denies: abdominal pain, vomiting, diarrhea or constipation : Denies: painful urination, urinary frequency or blood in urine Musculo: Denies: neck pain Integ/Breast: Denies: rash Neuro: Denies: headache Endo: Denies: fatigue PFSH PFS Medical History Hip pain ?M25.559 - Pain in unspecified hip (ICD-10) Colon polyps ?K63.5 - Polyp of colon (ICD-10) Surgical History History of partial knee replacement ?Z96.659 - Presence of unspecified artificial knee joint (ICD-10) History of appendectomy ?Z90.49 - Acquired absence of other specified parts of digestive tract (ICD-10) History of right inguinal hernia repair (06/13/09) ?Z98.890 - Other specified postprocedural states (ICD-10) ?Z87.19 - Personal history of other diseases of the digestive system (ICD-10) History of cholecystectomy (06/13/09) ?Z90.49 - Acquired absence of other specified parts of digestive tract (ICD-10) Family History Father Heart disease Mother Colon cancer Social History Narrative: The patient is . He has 2 adult children. He has a 3 daughter that lives out of state and a son that suffers from alcoholism and lives in his basement. 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 He does not smoke. Reports occasional alcohol use. What is your current living situation?: I presently have a place to live Problems where you live: no known problems In the past 12 months, utilities in danger of being shut off: no In past 12 months, lack of transportation kept you from medical appts, meetings, work, or getting things needed for daily living: no In the past 12 mos, have been you worried that your food would run out before you had money to buy more?: never true In the past 12 mos, the food you bought just didn't last and you didn't have money to buy more?: never true Smoking Status: Never smoker Non-prescribed substance use: denies use How often does anyone, including family, friends and others, physically hurt you: never How often does anyone, including family, friends and others, insult or talk down to you: never How often does anyone, including family, friends and others, threaten you with harm: never How often does anyone, including family, friends and others, scream or curse at you: never Exam Narrative: Exam Narrative: Alert and oriented. No acute distress. Mild erythema noted on the scrotum but no evidence of edema. No discomfort with palpation of the left testicle. Increased discomfort globally of the right testicle. No lymphadenopathy. Heart with regular rate and rhythm and lungs are clear bilaterally. Abdomen soft nontender. Moving all extremities. Nontoxic in appearance. Const: Vital Signs, click to edit/add: Vital Signs - 24 hr 08/21/24 13:56 08/21/24 18:02 Temperature 97.5 F L Pulse Rate 58 L Pulse Rate [Pulse Oximeter] 61 Respiratory Rate 16 16 Blood Pressure 105/77 Blood Pressure [Ri ght Upper Arm] 124/77 Pulse Oximetry 94 95 Oxygen Delivery Me thod Room Air Room Air Documenting provider has reviewed patient's vital signs: yes Course Course ED Course: Differential diagnosis includes but is not limited to testicular torsion, orchitis, epididymitis. Given the history most likely represents an infection. As he is sexually active will obtain GC and chlamydia as well as urinalysis. Patient will have stat ultrasound as well. Reevaluation(s) Reevaluation #1: Patient noted to have normal white count, ultrasound that shows acute epididymitis. Patient is ordered oral Levaquin 750 mg and 1 g IV Rocephin. Would like to have blood cultures done 1st before this medication is given. Vital Signs Vital signs: Initial Vital Signs Temperature 97.5 F L 08/21/24 13:56 Temperature Source Temporal Artery Scan 08/21/24 13:56 Pulse Rate 61 08/21/24 13:56 Pulse Rhythm Regular 08/21/24 13:56 Respiratory Rate 16 08/21/24 13:56 Blood Pressure 124/77 08/21/24 13:56 Blood Pressure Mean 92 08/21/24 13:56 Blood Pressure Position Sitting 08/21/24 13:56 Pulse Oximetry 94 08/21/24 13:56 Oxygen Delivery Method Room Air 08/21/24 13:56 Vital Signs Temperature 97.5 F L 08/21/24 13:56 Pulse Rate 61 08/21/24 13:56 Respiratory Rate 16 08/21/24 13:56 Blood Pressure 124/77 08/21/24 13:56 Pulse Oximetry 94 08/21/24 13:56 Oxygen Delivery Method Room Air 08/21/24 13:56 Temperature 97.5 F L 08/21/24 13:56 Pulse Rate 58 L 08/21/24 18:02 Respiratory Rate 16 08/21/24 18:02 Blood Pressure 105/77 08/21/24 18:02 Pulse Oximetry 95 08/21/24 18:02 Oxygen Delivery Method Room Air 08/21/24 18:02 Medications Administered Medications: Discontinued Medications Generic Name Dose Route Start Last Admin Trade Name Freq PRN Reason Stop Dose Admin Ceftriaxone Sodium 1 gm/ 100 mls @ 200 mls/hr 08/21/24 17:50 08/21/24 18:45 Sodium Chloride IVPB 08/21/24 17:51 200 mls/hr ONCE ONE Administration Levofloxacin 750 mg 08/21/24 17:23 08/21/24 18:02 Levofloxacin 750 Mg Tablet PO 08/21/24 17:24 750 mg ONCE ONE Administration MDM - Male Genitourinary MDM Narrative Medical decision making narrative: 1. Acute epididymitis - patient will receive oral Levaquin 750 mg and 1 g IV Rocephin. White count is reassuring at this time and patient while reported we had feeling febrile at home is afebrile here in the emergency room. Because of this and insisting on blood cultures prior to discharge. Remainder of Levaquin 500 mg daily for 9 days was sent to his pharmacy. Next dose is tomorrow. Ibuprofen or Tylenol as needed for discomfort. Patient does not feel he will need anything stronger than that. Suggest the use of form fitting underwear for support. 2. Disposition- Home at this time. Return to the ER for fever, vomiting, worsening symptoms. Push fluids. Have also alerted patient to importance of discontinuing medication if he experiences any joint pain. Medical Records Attestation: I reviewed the patient's medical records. Lab Data Attestation: I reviewed the patient's lab results. Labs: Lab Results 0308/21/24 08/21/24 Range/Units 14:06 17:30 18:10 WBC 7.45 (4.50-11.00) K/uL RBC 4.97 (4.30-5.90) m/uL Hgb 15.4 (13.5-17.5) gm/dL Hct 45.8 (37.0-53.0) % MCV 92 (80-100) fL MCH 31 (26-34) pg MCHC 34 (32-36) gm/dL RDW Coeff of Bhavani 11.7 (11.5-15.5) % Plt Count 190 (140-440) K/uL Neut % (Auto) 54.0 (42.0-72.0) % Lymph % (Auto) 35.0 (20-44) % Roberts % (Auto) 7.4 (0.0-11.0) % Eos % (Auto) 2.7 (0.0-7.0) % Baso % (Auto) 0.4 (0.0-3.0) % Neut # (Auto) 4.02 (1.7-7.0) K/uL Lymph # (Auto) 2.61 (0.90-2.90) K/uL Roberts # (Auto) 0.60 (0.00-0.90) K/UL Eos # (Auto) 0.20 (0.00-0.50) K/uL Baso # (Auto) 0.03 (0.00-0.30) K/uL Abs Immat Gran (auto) 0.04 (0.00-0.30) K/uL Imm/Tot Granulo (auto) 0.5 % Sodium 134 L (135-149) mmol/L Potassium 4.5 (3.6-5.1) mmol/L Chloride 99 (96-114) mmol/L Carbon Dioxide 29 (20-32) mmol/L Anion Gap 6 L (7-15) mEq/L BUN 17 (7-30) mg/dL Creatinine 0.8 (0.5-1.5) mg/dL Estimated Creat Clear 69.96 Estimated GFR 95 ml/min Glucose 99 (60-115) mg/dL Calcium 9.8 (8.4-10.6) mg/dL Total Bilirubin 0.5 (0.1-1.5) mg/dL AST 25 (12-35) U/L ALT 39 (4-50) U/L Alkaline Phosphatase 69 (40-150) U/L Total Protein 7.8 (6.0-8.3) g/dL Albumin 4.8 (3.3-5.0) g/dL Urine Color Yellow (Yellow) Urine Appearance Clear (Clear) Urine pH 6.5 (5.0-8.5) Ur Specific Ada 1.025 (1.000-1.030) Urine Protein Negative (Negative) Urine Glucose (UA) Negative (Negative) Urine Ketones Negative (Negative) Urine Blood 2+ A (Negative) Urine Nitrite Negative (Negative) Urine Bilirubin Negative (Negative) Urine Urobilinogen 0.2 (0.2-1.0) Ur Leukocyte Esterase Negative (Negative) Urine RBC 10-25 A (0-2) Urine WBC 0-2 (0-5) Ur Squamous Epith Cells None (None-Few) Urine Bacteria None (None) Imaging Data Scrotal ultrasound: Attestation: I have reviewed the pertinent imaging results. Radiologist's impression: Bother testicles are normal in size and echotexture. No masses. No suspicious calcifications. Arterial and venous color Doppler blood flow and spectral waveforms are present in both testicles. Epididymis: Enlarged and hyperemic right epididymis. Other: No significant hydrocele. No sign of varicocele. Scrotal wall is normal. Impression: Acute right epididymitis. Testicles and remainder of the exam are unremarkable. Discharge Plan Discharge Clinical Impression: Acute epididymitis Patient Disposition: Home, Self-Care Condition: Improved Additional Instructions: start antibiotic Levaquin tonight and continue for 10 days. Ibuprofen or Tylenol as needed for pain Return to the emergency room for fever, vomiting, worsening symptoms. Prescriptions: New levofloxacin 500 mg tablet 500 mg PO DAILY Qty: 9 0RF No Action propranolol 120 mg capsule,extended release 24 hr 120 mg PO QDAY Qty: 30 3RF albuterol sulfate 90 mcg/actuation aerosol powdr breath activated 2 inh inhalation Q4-6H PRNQty: 1 1RF (DME) Aerochamber MV Spacer See Rx Instructions .Route Qty: 1 0RF Rx Instructions: As directed primidone 50 mg tablet 100 mg PO BID scopolamine base 1 mg over 3 days patch 3 day 1 patch transdermal Q3D PRN (Reason: motion sickness) Qty: 24 0RF Rx Instructions: Change patch every 3 days p.r.n. For motion sickness meclizine 25 mg tablet 25 mg PO TID PRN (Reason: motion sickness) Qty: 30 0RF Rx Instructions: Take 1 tablet up to 3 times daily as needed for vertigo/motion sickness simvastatin 20 mg tablet 20 mg PO .Bedtime Qty: 90 3RF Follow Up/Referrals: Pravin Abrams MD [Primary Care Provider] - Stand Alone Forms: [employer] Info Instructions
[2024-08-21 17:39] LABS: Basophils Absolute Auto 0.03 K/uL (0.00-0.30); Basophils Percent Auto 0.4 % (0.0-3.0); Eosinophils Percent Auto 2.7 % (0.0-7.0); Hematocrit 45.8 % (37.0-53.0); Hemoglobin* 15.4 gm/dL (13.5-17.5); Immature Granulocytes Abs Auto 0.04 K/uL (0.00-0.30); Immature Granulocytes Pct Auto 0.5 %; Lymphocytes Absolute Auto 2.61 K/uL (0.90-2.90); Mean Corpuscular HGB Conc 34 gm/dL (32-36); Mean Corpuscular Hemoglobin 31 pg (26-34); Mean Corpuscular Volume 92 fL (80-100); Monocytes Percent Auto 7.4 % (0.0-11.0); Neutrophils Absolute Auto 4.02 K/uL (1.7-7.0); Platelet Count* 190 K/uL (140-440); RDW Coefficient of Variation % 11.7 % (11.5-15.5); Red Blood Count 4.97 m/uL (4.30-5.90); White Blood Count* 7.45 K/uL (4.50-11.00)
[2024-08-21 17:40] LABS: Slide Review Reflex No
--- OUTSIDE RECORDS SUMMARY | 2024-08-21 17:40 | XMS_ITS | Encounter Summary ---
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 Not on file documented as of this encounter Plan of Treatment Upcoming Encounters Date Type Department Care Team (Late st Contact Info) Description 09/19/2024 10:15 AM CDT Office Visit [facility] [address] [place] [address] Mark Mandel MD [address] [place] [address] documented as of this encounter Visit Diagnoses Not on filedocumented in this encounter Care Teams Actuarial Associate Relationship Specialty Start Date End Date Lissette Diaz MD [facility] [address], [place] [address] PCP - General 02/22/17 07/14/21 Naomi Chowdhury PA-C [facility] [address] [place] [address] PCP - General Physician Fairground Operator 07/15/21 documented as of this encounter
--- OUTSIDE RECORDS SUMMARY | 2024-08-21 17:40 | XMS_ITS | Clinical Summary ---
Author Organization [facility] Address [address] [place] [address] Care Team Providers Care Lube Technician Name Role Phone Naomi Chowdhury PA-C Primary Care Provider Allergies Active Allergy Reactions Criticality Noted Date Comments Codeine Nausea and Vomiting 03/15/2017 headache Medications fluticasone (FLONASE) 50 MCG/ACT nasal spray [place] 1 spray into both nostrils daily as [...] CDT Virtual Visit [facility] [address] [facility] [address] [place] [address] Tamara Carlson LICSW from Last [...] Assigned at Male 06/29/2021 11:25 AM ASSISTANT TRACK COACH Legal Sex Male 2:58 AM ASSISTANT TRACK COACH Gender Identity Male 06/29/2021 11:25 AM ASSISTANT TRACK COACH Sexual Orientation Choose not to disclose 2021 11:25 AM ASSISTANT TRACK COACH 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 Not on file Last Filed Vital Signs Vital Sign Reading Time Taken Comments Blood Pressure 131/65 07/22/2021 7:57 AM ASSISTANT TRACK COACH Pulse 66 07/22/2021 7:57 AM ASSISTANT TRACK COACH Temperature 36.6 C (97.8 F) 07/22/2021 7:57 AM ASSISTANT TRACK COACH Respiratory Rate 22 07/22/2021 7:57 AM ASSISTANT TRACK COACH Oxygen Saturation 94% 07/22/2021 7:14 AM ASSISTANT TRACK COACH Inhaled Oxygen Concentration - - Weight 119.4 kg (263 lb 4.8 oz) 022 8:43 AM ASSISTANT TRACK COACH Height 177.8 cm (5' 10) 07/21/2021 8:43 AM ASSISTANT TRACK COACH Body Mass Index 37.78 07/21/2021 8:43 AM ASSISTANT TRACK COACH Plan of Treatment Upcoming Encounters Date Type Department Care Team (Late st Contact Info) Description 09/19/2024 10:15 AM CDT Office Visit [facility] [address] [place] [phone] Mark Mandel MD [address] [place] [address] Health Maintenance Due Date Last Done Comments [...] this topic Medical Devices Implanted Type Area Peanut Farmer Device Identifier Shelf Expiration Date Model / Serial / Lot Bone Cement Simplex W/Tobramycin 6197-9-001 - [id number] Implanted:Qt y: 1 on 07/21/2021 by Reynaldo Granger MD at [facility] Cement, Bone Right: Knee [employer] [id number] 12/04/2022 6197-9-001 / / [id number] Right, 16mm, Ps, Fixed Bearing, Persona Vivacit-E Articular Surface Implanted:Qt y: 1 on 07/21/2021 by Reynaldo Granger MD at [facility] Right: Knee [id number] 12/04/2021 [id number] / / [id number] Persona Size 9, Right, Standard, Ps Femur Implanted:Qt y: 1 on 07/21/2021 by Reynaldo Granger MD at [facility] Right: Knee [id number] 07/16/2030 [id number] / / [id number] Persona Natural Tibia , 5 , Stemmed, Right Implanted:Qt y: 1 on 07/21/2021 by Reynaldo Granger MD at [facility] Right: Knee [id number] 12/29/2030 [id number] / / [id number] Explanted Type Area Peanut Farmer Device Identifier Shelf Expiration Date Model / Serial / Lot Unicompartmental Knee Arthroplasty Component Explanted:Qty: 1 on 07/21/2021 by Reynaldo Granger MD at [facility] Right: Knee Procedures Procedure Name Priority Date/Time Associated Diagnosis Comments GLUCOSE Routine 07/22/2021 5:54 AM ASSISTANT TRACK COACH HCL LIPID PANEL Routine 05/19/2004 2:44 PM ASSISTANT TRACK COACH Screening-Lipoid Disorders from Last 3 Months or Most Recently Relevant to Health Maintenance Results * (ABNORMAL) Glucose (07/22/2021 5:54 AM ASSISTANT TRACK COACH) Pathologist [facility] Glucose 111(H) 70 - 99 mg/dL 07/22/2021 6:45 AM ASSISTANT TRACK COACH LABORATORY Blood STRUCTURE OF RIGHT HAND / Unknown Venipuncture / Unknown 07/22/2021 5:54 AM ASSISTANT TRACK COACH 07/22/2021 6:25 AM ASSISTANT TRACK COACH us Reynaldo Granger MD LAB - BLOOD ORDERABLES F inal Result LABORATORY [facility] [address] Lab (1st floor, no room number) [place] [address], [facility] [phone] * (ABNORMAL) A.M.A. LIPID PANEL (05/19/2004 2:44 PM ASSISTANT TRACK COACH) Comments DNR [facility] Triglycerides 361(H) <150 MG/DL [facility] Cholesterol 229(H) <200 MG/DL [facility] Cholesterol Percentile 60 PERCENTILE [facility] HDL Cholesterol 36(L) >39 MG/DL [facility] LDL Cholesterol Calculated 121 <130 MG/DL [facility] Comment: LDL CHOLESTEROL (MG/DL) GOALS AND CUTPOINTS [...] (160-189: DRUG OPTIONAL) Cholesterol/HDL Ratio 6.4(H) <5.0 [facility] 05/19/2004 2:44 PM ASSISTANT TRACK COACH 05/19/2004 us Bj Smiley MD LABORATORY Final Resu lt [facility] from Last 3 Months or Most Recently Relevant to Health Maintenance Insurance PATIENT CHOICE [facility] [place] [facility]IC[facility] SUPPLEMENT Advance Directives For more information, please contact: [phone] * Full Code (Latest Code Status on File) Date Activated Date Inactivated Comments 07/21/2021 2:23 PM 07/22/2021 12:58 PM All basic a nd advanced life-sustaining interventions are performed as appropriate Question Answer Comments Code status determined by: Unable to dis cuss and no AD/POLST on file; continue PREVIOUSLY ORDERED code status Care Teams Lube Technician Relationship Specialty Start Date End Date Naomi Chowdhury PA-C [facility] [address] [place] [address] PCP - General Physician Barrow Worker Helper 07/15/21
--- OUTSIDE RECORDS SUMMARY | 2024-08-21 17:40 | XMS_ITS | Clinical Summary ---
Author Organization [employer] [facility] Address [address] [place] [address] Care Team Providers Care Group Sales Coordinator Name Role Phone Naomi Chowdhury PA-C Primary Care Provider [phone] Allergies Active Allergy Reactions Criticality Noted Date [...] (1 - 1-dose 75+ series) 2028 Insurance [facility] MEDICARE [place] ONLY Care Teams Group Sales Coordinator Relationship Specialty Start Date End Date Naomi Chowdhury PA-C [address] [place] [address] PCP - General Emergency Medicine 04/04/19
--- OUTSIDE RECORDS SUMMARY | 2024-08-21 17:40 | XMS_ITS | Encounter Summary ---
Author Organization [facility] Address [address] [place] [address] Care Team Providers Care Grinding Wheel Dresser Name Role Phone Naomi Chowdhury PA-C Primary Care Provider Reason for Visit * Reason Comments New Patient Encounter Details Date Type Department Care Team (Late st Contact Info) Description 08/16/2024 1:00 PM CDT Virtual Visit [facility] [address] [facility] [address] [place] [phone] Tamara Carlson, [facility] [address] [facility] [address] [place] [address] Social History Tobacco Use Types [...] Sex Assigned at Male 06/29/2021 11:25 AM MANAGER TRAINING Legal Sex Male 2:58 AM MANAGER TRAINING Gender Identity Male 06/29/2021 11:25 AM MANAGER TRAINING Sexual Orientation Choose not to disclose 2021 11:25 AM MANAGER TRAINING 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 YES Visit mode:VIDEO If the visit is dropped, the patient can be reconnected by: VIDEO VISIT: Text to cell phone: [phone] Will anyone else be joining the visit? NO How would you like to obtain your AVS? MyChart Are changes needed to the allergy or medication list? NO Reason for visit: New Patient documented in this encounter Plan of Treatment Upcoming Encounters Date Type Department Care Team (Late st Contact Info) Description 09/19/2024 10:15 AM CDT Office Visit [facility] [address] [facility] [address] [place] [phone] Mark Mandel MD [address] [facility] [address] [place] [address] documented as of this encounter Visit Diagnoses Not on filedocumented in this encounter Additional Health Concerns Assessment Noted Time PHQ-9 Depression Total Score: 16 025 12:47 PM CDT documented as of this encounter Care Teams Grinding Wheel Dresser Relationship Specialty Start Date End Date Naomi Chowdhury PA-C [facility] [address] [place] [address] PCP - General Physician Grievance And Appeals Coordinator 07/15/21 documented as of this encounter
--- OUTSIDE RECORDS SUMMARY | 2024-08-21 17:40 | XMS_ITS | Clinical Summary ---
Author Organization [facility] Address [address] [place] [address] Care Team Providers Care Business Relations Manager Name Role Phone Unassigned, Provider Primary Care [...] for each transition of care or referral. [facility] Allergies No known active allergies Medications simvastatin [...] Insurance BCBS OUT OF STATE Care Teams Business Relations Manager Relationship Specialty Start Date End Date Unassigned, Provider [address] [place] [address] PCP - General 05/15/00
[2024-08-21 17:46] LABS: Appearance Urine Clear (Clear); Bilirubin Urine Negative (Negative); Blood Urine 2+ (Negative); Color Urine Yellow (Yellow); Glucose Urine Negative (Negative); Ketones Urine Negative (Negative); Leukocyte Esterase Urine Negative (Negative); Nitrite Urine Negative (Negative); Protein Urine Negative (Negative); Specific Gravity Urine 1.025 (1.000-1.030); Urobilinogen Urine 0.2 (0.2-1.0); pH Urine 6.5 (5.0-8.5)
[2024-08-21 17:59] LABS: WBC Urine 0-2 (0-5)
[2024-08-21 18:02] VITALS: BP 105/77; PULSE 58; RESP 16; O2SAT 95
[2024-08-21] MEDS: levoFLOXacin 750 MG TABLET PO (18:02)
[2024-08-21] MEDS: cefTRIAXone 1 GM in 0.9 % SODIUM CHLORIDE Mini-bag 100 ML IVPB (18:45)
[2024-08-21 18:52] LABS: Albumin* 4.8 g/dL (3.3-5.0); Chloride* 99 mmol/L (96-114)
[2024-08-21 18:53] LABS: Potassium* 4.5 mmol/L (3.6-5.1); Sodium* 134 mmol/L (135-149)
[2024-08-21 18:55] LABS: Anion Gap 6 mEq/L (7-15); Aspartate Amino Transferase* 25 U/L (12-35); Bilirubin Total* 0.5 mg/dL (0.1-1.5); Blood Urea Nitrogen* 17 mg/dL (7-30); Carbon Dioxide* 29 mmol/L (20-32); Creatinine* 0.8 mg/dL (0.5-1.5); Est. Creatinine Clearance* 69.96; Estimated Glomerular Filt Rate 95 ml/min; Total Protein* 7.8 g/dL (6.0-8.3)
[2024-08-21 18:56] LABS: Alanine Aminotransferase* 39 U/L (4-50); Alkaline Phosphatase* 69 U/L (40-150); Calcium* 9.8 mg/dL (8.4-10.6); Glucose* 99 mg/dL (60-115)
[2024-08-21 19:23] LABS: Chlamydia DNA Amplified* NOT DETECTED (No Detected); GC DNA Amplified* NOT DETECTED (No Detected)
== END 2024-08-21 19:25 | disposition home or self-care (01) ==
PROVIDERS: Emergency Provider Family Medicine; PCP Internal Medicine
DX: N45.1 Epididymitis (principal)
CPT/HCPCS: 36415; 76870; 80053; 81001; 85025; 87040; 87491; 87591; 93976; 96365; 99284; A9270; J0696

== ENCOUNTER 2024-08-24 08:11 | Outpatient (CLI) | payer MEDICARE, BC, SELFPAY | END 2024-08-24 08:12 | disposition home or self-care (01) | PROVIDERS: PCP Internal Medicine; Visit Provider Internal Medicine | DX: R79.89 Other specified abnormal findings of blood chemistry (principal); E78.5 Hyperlipidemia, unspecified; Z12.5 Encounter for screening for malignant neoplasm of prostate | CPT/HCPCS: 80061; G0103 ==

== ENCOUNTER 2024-11-09 10:06 | Outpatient (CLI) | payer MEDICARE, BC, SELFPAY ==
--- NOTE | 2024-11-21 12:20 | W.PM.SLEEP ---
Sleep Study Details Details Interpreting Provider: Trina Date of Sleep Study: 11/09/24 Sleep Study Details: STUDY TYPE:? Home unattended ? BMI:? 37.3 ORDERING PROVIDER:? Trina INDICATION:? Concerned about sleep apnea ? SLEEP SUMMARY:? 501 minutes monitored RESPIRATORY SUMMARY:? AHI 52.7 per rule 1A, 47.5 per CMS guideline Low oxygen 78 10.2% of study oxygen less than 90% Snoring 93% PERIODIC LIMB MOVEMENTS OF SLEEP:? Not recorded CARDIAC:? Range 51-76, mean 55.9 beats per minute IMPRESSION: Severe obstructive sleep apnea RECOMMENDATION: Treatment options include CPAP or BiPAP. Weight loss is also recommended.
== END 2024-11-09 10:07 | disposition home or self-care (01) ==
LOC: SLEEP 10:07
PROVIDERS: PCP Internal Medicine; Visit Provider Otolaryngology
DX: G47.33 Obstructive sleep apnea (adult) (pediatric) (principal)
CPT/HCPCS: 95806